=== PATIENT | female | born 1970 | race American Indian/Alaskan Native ===

== ENCOUNTER 2018-10-28 08:01 | Outpatient (CLI) | payer OTHER ==
[2018-10-28 09:34] LABS: Hematocrit 24.7 % (30.3-42.9); Hemoglobin 8.3 gm/dl (10.1-14.3); Mean Corpuscular HGB Conc 34 % (30-34); Mean Corpuscular Volume 81 fl (79-97); Platelet Count 149 K/mm3 (140-440); Red Blood Count 3.05 M/mm3 (3.65-5.03)
[2018-10-28 09:36] LABS: Red Cell Distribution Width 27.3 % (13.2-15.2)
--- NOTE | 2018-10-28 09:50 | XRay Report ---
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 COMPARISON: None available. FINDINGS: SUPPORT DEVICES: None. HEART / MEDIASTINUM: No significant abnormality. LUNGS / PLEURA: No significant pulmonary or pleural abnormality. No pneumothorax. ADDITIONAL FINDINGS: No significant additional findings. IMPRESSION: 1. No acute findings. Signer Name: Brody Ruffin MD Signed: 10/28/2018 9:46 AM Workstation Name: [id number]
[2018-10-28 09:54] LABS: Alanine Aminotransferase 14 units/L (7-56); Albumin 3.2 g/dL (3.9-5); BUN/Creatinine Ratio 16; Blood Urea Nitrogen 14 mg/dL (7-17); Calcium 8.9 mg/dL (8.4-10.2); Hemolysis Index 2; LDL Cholesterol,Direct 76 mg/dL (50-130)
[2018-10-28 10:13] LABS: Free T4 (Free Thyroxine) 1.13 ng/dL (0.76-1.46)
[2018-10-28 10:24] LABS: Chol/HDL Ratio 4.13 %; HDL Cholesterol 29 mg/dL (40-59)
== END 2018-10-28 08:02 | disposition home or self-care (01) ==
LOC: PF 08:01
PROVIDERS: ATTEND Internal Medicine
DX: R06.02 Shortness of breath (principal); Z57.5 Occupational exposure to toxic agents in other industries
CPT/HCPCS: 36415; 36600; 71046; 80053; 80061; 82803; 84439; 84443; 85027; 94010; 94726; 94729